=== PATIENT | male | born 1950 | race African-American/Black ===

== ENCOUNTER → 2018-07-17 | Outpatient (CLI) | payer OTHER ==
--- NOTE | 2018-07-17 14:59 | 2DMMODE ---
[facility] [place] [address] 2 D/M-MODE ECHOCARDIOGRAM Name: GREG KWOK JENNY Room #: REG [facility]#: [id number] ������������� Admission: 07/17/18 ������������� Attend Phys: Brady Goldman Discharge: ��� ������������� ��� Date of : 48 Date of Service: 07/17/18 1459 �� Report #: [id number] �������� ��������������������������������������������[id number] THIS REPORT FOR: //name// APPROVED REPORT Study performed: 07/17/2018 13:16:54 EXAM: Comprehensive 2D, Doppler, and color-flow Echocardiogram Patient Location: Out-Patient Status: routine BSA: 2.00 HR: 66 bpm BP: 115/65 mmHg Rhythm: NSR Other Information Study Quality: Good Indications Ventricular tachycardia. HX: CABG, DM, HTN, HLP 2D Dimensions RVDd: 35.81 mm IVSd: 13.59 (7-11mm) LVOT Diam: 19.98 (18-24mm) LVDd: 46.42 mm PWd: 12.46 (7-11mm) Ascending Ao: 25.48 (22-36mm) LVDs: 31.74 (25-40mm) Aortic Root: 33.28 mm Volumes Left Atrial Volume (Systole) Single Plane 4CH: 29.04 mL Single Plane 2CH: 38.83 mL LA ESV Index: 20.00 mL/m2 Aortic Valve AoV Peak Wiley.: 0.99 m/s AO Peak Gr.: 3.92 mmHg LVOT Max P.16 mmHg LVOT Max V: 0.73 m/s GALA Vmax: 2.32 cm2 Mitral Valve E/A Ratio: 1.0 MV Decel. Time: 231.52 ms MV E Max Wiley.: 0.69 m/s [facility] [address] [place] [address] 2 D/M-MODE [facility]OCARDIOGRAM [facility]: [facility] [id number] ������������� Admission: 07/17/18 ������������� Attend Phys: Brady Goldman Discharge: ��� ������������� ��� Date of : 48 Date of Service: 07/17/18 1459 �� Report #: [id number] �������� ��������������������������������������������[id number] MV A Wiley.: 0.69 m/s MV PHT: 67.14 ms IVRT: 83.04 ms Pulmonary Valve PV Peak Wiley.: 0.74 m/s PV Peak Gr.: 2.19 mmHg Pulmonary Vein P Vein S: 0.47 m/s P Vein A: 0.30 m/s P Vein D: 0.36 m/s P Vein A Dur.: 115.3 msec P Vein S/D Ratio: 1.31 Tricuspid Valve RAP Estimate: 5.00 mmHg Left Ventricle The left ventricle is normal size. There is normal LV segmental wall motion. Mild concentric left ventricular hypertrophy. Left ventricular systolic function is normal. LVEF is 55-60%. Moderate diastolic dysfunction is present (pseudonormal filling). Right Ventricle The right ventricle is normal size. The right ventricular systolic function is normal. Atria The left atrium size is normal. The right atrium size is normal. Aortic Valve Aortic valve is trileaflet; mildly calcified. No aortic regurgitation is present. There is no aortic valvular stenosis. Mitral Valve The mitral valve is normal in structure. Trace mitral regurgitation. No evidence of mitral valve stenosis. Tricuspid Valve The tricuspid valve is normal in structure. Trace tricuspid regurgitation. Unable to assess PA pressure. Pulmonic Valve Pulmonic valve is not well visualized. Great Vessels The aortic root is normal in size. The ascending aorta is normal in [facility] [address] [place] [address] 2 D/M-MODE [facility]IOGRAM [facility] #: REG Evelia#: [id number] ������������� Admission: 07/17/18 ������������� Attend Phys: Brady Espos[address] [facility] Discharge: ��� ������������� ��� Date of : 48 Date of Service: 07/17/18 1459 �� Report #: [id number] �������� ��������������������������������������������[id number] size. IVC is normal in size and collapses >50% with inspiration. Pericardium There is no pericardial effusion. <Conclusion> The left ventricle is normal size. Mild concentric left ventricular hypertrophy. Left ventricular systolic function is normal. Moderate diastolic dysfunction is present (pseudonormal filling). The right ventricle is normal size. The left atrium size is normal. Aortic valve is trileaflet; mildly calcified. Trace mitral regurgitation. Trace tricuspid regurgitation. ��������������������������������������������� <ELECTRONICALLY SIGNED> ���������������������������������������� By: Jc Barajas MD ��������������������������������������������� 07/17/181458 58 58 Jc Barajas MD /INF
== END ==
LOC: CV 13:04
DX: I11.9 Hypertensive heart disease without heart failure (principal); I35.8 Other nonrheumatic aortic valve disorders; E11.9 Type 2 diabetes mellitus without complications; E78.5 Hyperlipidemia, unspecified; Z95.1 Presence of aortocoronary bypass graft

== ENCOUNTER → 2018-12-14 | Outpatient (CLI) | payer OTHER | LOC: NUC 12-06 14:24 | DX: I25.10 Atherosclerotic heart disease of native coronary artery without angina pectoris (principal); I10 Essential (primary) hypertension; E78.5 Hyperlipidemia, unspecified; I48.91 Unspecified atrial fibrillation; J44.9 Chronic obstructive pulmonary disease, unspecified; E11.9 Type 2 diabetes mellitus without complications; Z95.5 Presence of coronary angioplasty implant and graft; Z79.4 Long term (current) use of insulin; Z79.899 Other long term (current) drug therapy ==

== ENCOUNTER → 2019-06-20 | Outpatient (CLI) | payer OTHER | LOC: SJCVCIMAG 10:59 → SJCVC 10:59 | DX: I08.2 Rheumatic disorders of both aortic and tricuspid valves (principal); R94.31 Abnormal electrocardiogram [ECG] [EKG]; I12.9 Hypertensive chronic kidney disease with stage 1 through stage 4 chronic kidney disease, or unspecified chronic kidney disease; E11.22 Type 2 diabetes mellitus with diabetic chronic kidney disease; N18.9 Chronic kidney disease, unspecified; I25.810 Atherosclerosis of coronary artery bypass graft(s) without angina pectoris; E11.40 Type 2 diabetes mellitus with diabetic neuropathy, unspecified; E78.00 Pure hypercholesterolemia, unspecified; J44.9 Chronic obstructive pulmonary disease, unspecified; E78.5 Hyperlipidemia, unspecified; M19.90 Unspecified osteoarthritis, unspecified site; Z82.49 Family history of ischemic heart disease and other diseases of the circulatory system; Z87.891 Personal history of nicotine dependence; Z87.448 Personal history of other diseases of urinary system; Z79.82 Long term (current) use of aspirin; Z79.4 Long term (current) use of insulin; Z79.899 Other long term (current) drug therapy ==

== ENCOUNTER → 2019-07-31 | Outpatient (CLI) | payer OTHER | LOC: SJCVC 13:33 | PROVIDERS: ATTEND Internal Medicine Cardiovascular Disease | DX: I25.10 Atherosclerotic heart disease of native coronary artery without angina pectoris (principal); I47.2 Ventricular tachycardia; J44.9 Chronic obstructive pulmonary disease, unspecified; R94.31 Abnormal electrocardiogram [ECG] [EKG]; I11.9 Hypertensive heart disease without heart failure; E78.5 Hyperlipidemia, unspecified; E11.9 Type 2 diabetes mellitus without complications; G47.33 Obstructive sleep apnea (adult) (pediatric); Z79.82 Long term (current) use of aspirin; Z79.4 Long term (current) use of insulin; Z79.899 Other long term (current) drug therapy; Z95.1 Presence of aortocoronary bypass graft; Z82.49 Family history of ischemic heart disease and other diseases of the circulatory system; Z87.891 Personal history of nicotine dependence ==

== ENCOUNTER → 2019-08-19 | Outpatient (CLI) | payer OTHER ==
[~2019-08-19] MED LIST: ASA81BEC PO; AVODART0.5 MG PO; BACLOFEN20 MG PO; BREO ELLIPTA 21 EACH INH; CLOPIDOGREL75 MG PO; COZAAR100 MG PO; CRESTOR20 MG PO; FUROSEMIDE 40 M40 MG PO; HYDRALAZINE 2525 MG PO; INCRUSE ELLI62.5 MCG INH; MAXITROL EYE DRO5 ML RT. EYE; METHADONE HCL5 MG PO; NEURONTIN 400400 M1 PO; NOVOLOG100 UNIT/M SUBQ; PLAVIX 75 MG TA75 MG PO; SPIRONOLACTONE25 MG PO; TOPROL XL25 MG PO; TRADJENTA5 MG; TRESIBA100 UNIT/1 SUBQ
== END ==
LOC: SJCVC 13:08
PROVIDERS: ATTEND Internal Medicine Cardiovascular Disease
DX: R94.31 Abnormal electrocardiogram [ECG] [EKG] (principal); I11.0 Hypertensive heart disease with heart failure; I50.32 Chronic diastolic (congestive) heart failure; E78.00 Pure hypercholesterolemia, unspecified; I25.810 Atherosclerosis of coronary artery bypass graft(s) without angina pectoris; J44.9 Chronic obstructive pulmonary disease, unspecified; E11.40 Type 2 diabetes mellitus with diabetic neuropathy, unspecified; E78.5 Hyperlipidemia, unspecified; M19.90 Unspecified osteoarthritis, unspecified site; Z82.49 Family history of ischemic heart disease and other diseases of the circulatory system; Z95.1 Presence of aortocoronary bypass graft; Z79.82 Long term (current) use of aspirin; Z79.899 Other long term (current) drug therapy; Z87.891 Personal history of nicotine dependence

== ENCOUNTER 2019-08-22 06:37 | Observation (INO) | payer OTHER | END 2019-08-23 11:01 | disposition home or self-care (01) | LOC: CATH 06:37 → 2N 12:27 | PROVIDERS: ADMIT Internal Medicine Cardiovascular Disease | DX: I25.110 Atherosclerotic heart disease of native coronary artery with unstable angina pectoris (principal); E78.00 Pure hypercholesterolemia, unspecified; I11.0 Hypertensive heart disease with heart failure; I50.9 Heart failure, unspecified ==

== ENCOUNTER → 2019-08-28 | Outpatient (CLI) | payer OTHER | LOC: SJCVCIMAG 13:11 | PROVIDERS: ATTEND Internal Medicine Cardiovascular Disease | DX: R19.09 Other intra-abdominal and pelvic swelling, mass and lump (principal); R10.30 Lower abdominal pain, unspecified; I25.10 Atherosclerotic heart disease of native coronary artery without angina pectoris; E11.22 Type 2 diabetes mellitus with diabetic chronic kidney disease; I13.0 Hypertensive heart and chronic kidney disease with heart failure and stage 1 through stage 4 chronic kidney disease, or unspecified chronic kidney disease; I50.32 Chronic diastolic (congestive) heart failure; N18.9 Chronic kidney disease, unspecified; Z87.891 Personal history of nicotine dependence; Z79.899 Other long term (current) drug therapy ==

== ENCOUNTER → 2019-08-29 | Outpatient (CLI) | payer OTHER | LOC: SJCVC 09:57 | PROVIDERS: ATTEND Internal Medicine | DX: R94.31 Abnormal electrocardiogram [ECG] [EKG] (principal); I25.10 Atherosclerotic heart disease of native coronary artery without angina pectoris; I10 Essential (primary) hypertension; E78.00 Pure hypercholesterolemia, unspecified; Z79.899 Other long term (current) drug therapy; Z87.891 Personal history of nicotine dependence ==

== ENCOUNTER → 2019-09-18 | Outpatient (CLI) | payer OTHER | LOC: RAD 09:17 | PROVIDERS: ATTEND Internal Medicine | DX: R06.00 Dyspnea, unspecified (principal) ==

== ENCOUNTER → 2019-10-11 | Outpatient (CLI) | payer OTHER | LOC: SJCVCIMAG 09:23 | PROVIDERS: ATTEND Internal Medicine Cardiovascular Disease | DX: I25.10 Atherosclerotic heart disease of native coronary artery without angina pectoris (principal); R94.31 Abnormal electrocardiogram [ECG] [EKG]; I11.0 Hypertensive heart disease with heart failure; I50.32 Chronic diastolic (congestive) heart failure; E11.9 Type 2 diabetes mellitus without complications; J44.9 Chronic obstructive pulmonary disease, unspecified; E78.00 Pure hypercholesterolemia, unspecified; Z95.1 Presence of aortocoronary bypass graft; Z87.891 Personal history of nicotine dependence; Z79.899 Other long term (current) drug therapy ==

== ENCOUNTER → 2020-01-16 | Outpatient (CLI) | payer OTHER | LOC: LAB 10:35 | PROVIDERS: ATTEND Internal Medicine | DX: Z01.812 Encounter for preprocedural laboratory examination (principal); Z20.828 Contact with and (suspected) exposure to other viral communicable diseases ==

== ENCOUNTER → 2020-01-20 | Outpatient (CLI) | payer OTHER ==
--- NOTE | 2020-01-22 15:19 | SLE ---
[facility] [place] [address] POLYSOMNOGRAPHY STUDY Name: GREG KWOK Room #: REG HAZEL Martinez.#: [id number] Admission: 01/20/20 Attend Phys: Rocky Scherer MD Discharge: Date of : 48 Report #: [id number] THIS REPORT FOR: cc: Kaylah Pink MD, Julie MD Khan, Aman U. MD ~ DATE OF SERVICE: 01/20/2020 SLEEP STUDY ATTENDING PHYSICIAN: Rocky Scherer MD The patient is 69 years old who weighs 190 pounds with a BMI of 25.8. The patient's Talmo score was 11. The patient has a diagnosis of sleep apnea, which was initially based on a home sleep study. The patient is placed on an auto CPAP. However, on followup the download data still showed an AHI of 17.5 per hour. The patient was placed on BiPAP. The patient had another sleep study, which was a BiPAP titration study performed at [facility] on 07/03/2019. The patient was titrated up to BiPAP pressure of 11/5. The patient's AHI; however, was 58.7 per hour and was predominantly related to central apneas. No backup rate was mentioned. The patient was referred back to [facility] for a BiPAP titration study with possible backup rate. During the night study, the patient spent 422 minutes in bed and slept for 379 minutes with a sleep efficiency of 90%. Sleep latency was 4.3 minutes with a REM latency of 54 minutes. Sleep architecture showed normal stage 1 sleep, increased stage 2 sleep, absent N3 sleep and normal REM sleep, which was 19% of the total sleep time. EKG monitoring revealed an average heart rate of 70 beats per minute. There were PVCs seen frequently. No sustained arrhythmias observed. No PLM seen. The patient was started on BiPAP at a pressure of 8/4 and titrated up to 11/5. A backup rate was also added. This does happen after 2:00 a.m. At the BiPAP pressure of 11/5 with a backup rate of 14, the patient slept 88% of the time with a total of 189 minutes. The patient's AHI was reduced to 6.8 per hour and oxygen saturations remained above 90%. Without a backup rate, the patient's AHI was also 6.8 per hour. As reported previously, the central apneas that were seen on BiPAP titration study were likely treatment emergent central apneas. However, the patient would benefit with a backup rate at the present moment. IMPRESSION: [facility] [address] [place] [address] POLYSOMNOGRAPHY STUDY [facility] Room #: REG HAZEL Alt[place]ano#: [id number] Admission: 01/20/20 Attend Phys: Rocky Scherer MD Discharge: Date of : 48 Report #: [id number] 1. Sleep apnea diagnosed by previous sleep study. 2. No clinically significant periodic limb movements of sleep. 3. Abnormal EKG consistent with premature ventricular contractions. RECOMMENDATIONS: 1. BiPAP at a pressure of 11/5 with a backup rate of 14 should be used on a nightly basis. It seems like that the patient was likely having treatment emergent central apneas. This AHI at the same BiPAP pressure is much better than previous AHI of 58 per hour on a previous sleep study done in 06/2019. Treatment emergent central apneas tend to improve over a period of time as seen on this study. 2. Follow up in 4-6 weeks to assess compliance with BiPAP and to document clinical improvement. I would also highly recommend to review the download data. 3. 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 4. Cautioned regarding driving until symptoms of sleep apnea resolve with the above recommendations. <ELECTRONICALLY SIGNED> By: Marquise Soriano MD 01/22/20 1519 31 44 Marquise Soriano MD /nt
== END ==
LOC: SLEEPLAB 16:06
PROVIDERS: ATTEND Internal Medicine
DX: G47.33 Obstructive sleep apnea (adult) (pediatric) (principal); G47.31 Primary central sleep apnea; Z68.25 Body mass index [BMI] 25.0-25.9, adult

== ENCOUNTER → 2020-04-10 | Outpatient (CLI) | payer OTHER | LOC: SJCVC 11:33 | PROVIDERS: ATTEND Internal Medicine Cardiovascular Disease | DX: R94.31 Abnormal electrocardiogram [ECG] [EKG] (principal); I25.10 Atherosclerotic heart disease of native coronary artery without angina pectoris; I11.0 Hypertensive heart disease with heart failure; I50.32 Chronic diastolic (congestive) heart failure; E78.00 Pure hypercholesterolemia, unspecified; R60.9 Edema, unspecified; E78.5 Hyperlipidemia, unspecified; E11.40 Type 2 diabetes mellitus with diabetic neuropathy, unspecified; G47.33 Obstructive sleep apnea (adult) (pediatric); M19.90 Unspecified osteoarthritis, unspecified site; Z79.82 Long term (current) use of aspirin; Z79.899 Other long term (current) drug therapy; Z87.891 Personal history of nicotine dependence ==

== ENCOUNTER → 2020-10-15 | Outpatient (CLI) | payer OTHER | LOC: SJCVCIMAG 08:38 | PROVIDERS: ATTEND Internal Medicine Cardiovascular Disease | DX: I25.10 Atherosclerotic heart disease of native coronary artery without angina pectoris (principal); I13.0 Hypertensive heart and chronic kidney disease with heart failure and stage 1 through stage 4 chronic kidney disease, or unspecified chronic kidney disease; I50.32 Chronic diastolic (congestive) heart failure; E78.00 Pure hypercholesterolemia, unspecified; R60.9 Edema, unspecified; E11.9 Type 2 diabetes mellitus without complications; J43.9 Emphysema, unspecified; Z79.82 Long term (current) use of aspirin; Z79.899 Other long term (current) drug therapy; Z79.4 Long term (current) use of insulin; Z87.891 Personal history of nicotine dependence; E78.5 Hyperlipidemia, unspecified; Z95.1 Presence of aortocoronary bypass graft ==

== ENCOUNTER 2020-11-16 07:34 | Observation (INO) | payer OTHER ==
[~2020-11-16] VITALS: Ht 182.9 cm; Wt 85.3 kg
[2020-11-16 08:40] LABS: HEMATOCRIT 41.9 % (42.0-52.0); HEMOGLOBIN 14.2 gm/dL (14.0-18.0); MCH 29.7 pg (26.0-34.0); MCHC 33.9 g/dL (28.0-37.0); MCV 87.8 fL (80.0-100.0); RBC 4.78 mil/uL (4.50-6.00); RDW 14.1 % (10.5-14.5); WBC 5.9 thou/uL (4.0-11.0)
[2020-11-16 08:55] LABS: CALCIUM 8.8 mg/dL (8.5-10.1); CREATININE 1.6 mg/dL (0.7-1.3); POTASSIUM 4.1 mmol/L (3.5-5.1)
[2020-11-16] MEDS ORDERED: FUROSEMIDE 40 M40 MG PO (09:49)
[2020-11-16] MEDS ORDERED: SPIRONOLACTONE25 M1 PO (09:50)
[2020-11-16 10:05] VITALS: BP 154/68
--- NOTE | 2020-11-16 12:08 | EKG ---
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 : 1950 Requested By: Jc Barajas Order Number: [id number] MD: Caden Bailey Measurements Intervals Webb Rate: 64 P: 67 TN: 177 QRS: -7 QRSD: 98 T: -61 QT: 430 QTc: 444 Interpretive Statements Sinus rhythm Atrial premature complex Left atrial enlargement RSR' in V1 or V2, right VCD or RVH Borderline T abnormalities, inferior leads Compared to ECG 08/23/2019 07:41:22 Atrial premature complex(es) now present Right ventricular hypertrophy now present T-wave abnormality now present ST (T wave) deviation no longer present Electronically Signed On 11-16-2020 12:07:33 CDT by Caden Bailey [email or web address] <ELECTRONICALLY SIGNED> By: Caden Bailey MD, FACC 11/16/20 1207 1037 1037 Caden Bailey MD, FACC /EPI
[2020-11-16 16:15] VITALS: BP 160/76
[2020-11-16 16:30] VITALS: BP 151/74
[2020-11-16 16:45] VITALS: BP 143/79
[2020-11-16 17:00] VITALS: BP 151/69
--- NOTE | 2020-11-16 17:01 | CATHLAB ---
[facility] [place] [address] INVASIVE PROCEDURE REPORT Name: GREG KWOK Room #: 205-P [facility] [place] MCal#: [id number] Admission: 11/16/20 Attend Phys: Jc Barajas MD Discharge: Date of : 48 Report #: [id number] THIS REPORT FOR: cc: Mckenzie Aragon MD, Hannah MD Park, Jin S. 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, Minerva Crystal RN RN, Randee Jean Baptiste RT(R)() Mai Prakash Ja'net RTR Monitor Procedures Performed Left Heart Cath w/or w/o Coronaries [id number] [facility] Art Access - R femoral artery* 03127 Initial Mod Sed Same Phys/QHP Gr5y 947406 44301 Mod Sed Same Phys/QHP Ea 316171 Indication Dyspnea, Unstable angina , Positive stress test, Chest pain Risk Factors Peripheral Vascular Disease, Hypercholesterolemia, Coronary Artery DiseaseHypertension, Diabetes Previous Procedures/Diagnoses Previous CABGPrevious PCI Procedure Narrative The Right Groin^ was infiltrated with 1% Lidocaine subcutaneous anesthesia. A MoSoNACLE 4FR Sheath #[id number] sheath was inserted into the RFA^. Coronary angiography was performed using coronary diagnostic catheters. The right coronary system was accessed and visualized with a 4FR AR MOD #[id number] catheter. The left coronary system was accessed and visualized with a 4FR JL4 catheter. The left ventricle was accessed and visualized with a 4FR JR4 catheter. Left ventricular/Aortic Valve gradient assessed via catheter pullback. Left ventriculogram was performed in 30 degree projection. Hemostasis was obtained with manual pressure following sheath removal without [facility] [place] [address] INVASIVE PROCEDURE REPORT [facility]: [facility] Room #: [address] [place] [address] [place] .R.#: [id number] Admission: 11/16/20 Attend Phys: Jc Barajas MD Discharge: Date of : 48 Report #: [id number] any complications. The patient tolerated the procedure well and there were no complications associated with the procedure. There was no hematoma. Intraoperative Conscious Sedation Sedation start time: 14:32 Case end Time: 15:10 Fentanyl 50 mcg Versed 1 mg Fluoro Time: 10.30 minutes Dose: DAP 8152.80 cGycm2 1070 mGy Contrast Type and Amount: Visipaque 75 ml Coronary Angiography The patient's coronary anatomy is right dominant. Diagnostic Cath Left Main There is a stent in the distal left main artery extending into the proximal circumflex with severe restenosis, 80%. LAD The LAD has a severe ostial occlusion. There is a patent SIEGEL graft with an end-to-side anastomosis to the mid LAD. This has retrograde filling into a moderate-sized first diagonal artery. There is LENNIE-3 antegrade blood flow into the distal LAD segment. Circumflex As above, there is a severe restenotic lesion in the proximal circumflex stent. OM1 There is a severe stenosis in the proximal segment, 80%. Right Coronary The RCA is totally occluded in the midsegment. There is an occluded vein graft to the PDA. The distal RCA branches are filled via collateral circulation from the left coronary artery. Left Ventriculography Left Ventriculography was not performed. Ejection Fraction was 35% based off patient's Nuclear Cardiac Stress Test. An LVEDP was measured and there is no gradient across the outflow tract. Hemodynamics The aortic pressure is 141/67 mmHg with a mean of 93 mmHg. The left ventricular pressure is 144/5 mmHg with a mean of mmHg. The left ventricular end diastolic pressure is 16 mmHg. Pullback from the left ventricle to the aorta revealed no gradient across the aortic valve. Conclusion [facility] [address] [place] [address] INVASIVE PROCEDURE REPORT [facility] Room #: 205-P [facility] IN M.R.#: [id number] Admission: 11/16/20 Attend Phys: Jc Barajas MD Discharge: Date of : 48 Report #: [id number] 1. There is a patent SIEGEL graft to the mid LAD segment, with retrograde filling of a moderate-sized first diagonal artery. 2. The RCA is occluded, the distal branches fill via collateral circulation. 3. There is a severe restenotic lesion in the distal left main extending into the proximal left circumflex artery. Recommend staged PCI involving laser atherectomy. 4. Recommend guideline directed medical therapy. <ELECTRONICALLY SIGNED> By: Jc Barajas MD 11/16/201699 99 99 Jc Barajas MD /INF
[2020-11-16 17:30] VITALS: BP 159/88
== END 2020-11-16 17:50 | disposition home or self-care (01) ==
LOC: CATH 07:34 → 2N 15:54
PROVIDERS: ADMIT Internal Medicine Cardiovascular Disease; ATTEND Internal Medicine Cardiovascular Disease
DX: I25.110 Atherosclerotic heart disease of native coronary artery with unstable angina pectoris (principal); I13.0 Hypertensive heart and chronic kidney disease with heart failure and stage 1 through stage 4 chronic kidney disease, or unspecified chronic kidney disease; E11.22 Type 2 diabetes mellitus with diabetic chronic kidney disease; I50.30 Unspecified diastolic (congestive) heart failure; N18.9 Chronic kidney disease, unspecified; Z79.82 Long term (current) use of aspirin; Z79.84 Long term (current) use of oral hypoglycemic drugs; Z79.899 Other long term (current) drug therapy; Z86.73 Personal history of transient ischemic attack (TIA), and cerebral infarction without residual deficits

== ENCOUNTER 2020-11-24 07:48 | Observation (INO) | payer OTHER ==
[~2020-11-24] VITALS: Ht 182.9 cm; Wt 82.1 kg
[2020-11-24] VITALS (8 sets, daily range): BP systolic 111–180; BP diastolic 79–92
[~2020-11-24 07:48] MED LIST changes: +SPIRONOLACTONE25 M1 PO
[2020-11-24 08:26] LABS: HEMATOCRIT 42.8 % (42.0-52.0); HEMOGLOBIN 14.2 gm/dL (14.0-18.0); MCH 29.2 pg (26.0-34.0); MCHC 33.2 g/dL (28.0-37.0); RBC 4.87 mil/uL (4.50-6.00); RDW 14.1 % (10.5-14.5); WBC 6.2 thou/uL (4.0-11.0)
[2020-11-24 08:34] LABS: CREATININE 1.9 mg/dL (0.7-1.3); POTASSIUM 4.2 mmol/L (3.5-5.1)
--- NOTE | 2020-11-24 16:42 | CATHLAB ---
[facility] [place] [address] INVASIVE PROCEDURE REPORT Name: GREG KWOK Room #: REG HAZEL MartinezCompa#: [id number] Admission: 11/24/20 Attend Phys: Jc Barajas MD Discharge: Date of : 48 Report #: [id number] THIS REPORT FOR: cc: Mckenzie Aragon MD, Hannah MD Park, Jin S. MD ~ APPROVED REPORT Study performed: 11/24/2020 14:16:11 Patient Details Patient Status: Out-Patient Room #: The patient is a 70 year-old male Event Personnel Jc Barajas Records Analyst, Светлана Quinteros RTR Monitor, Hamilton Szymanski RN RN, Manjula Oenill RTR Scrub Procedures Performed Art Access - L femoral artery* LINNEA w/Atherectomy Single Left Main C9602 DESATH Hemostasis w/ Mynx , 06537 Initial Mod Sed Same Phys/QHP Gr5y 817290 17354 Mod Sed Same Phys/QHP Ea 469596 Indication Dyspnea, Unstable angina , Positive stress test, Chest pain, The patient had a recent cardiac catheterization performed revealing severe restenotic lesion in in the distal left main extending into the ostial left circumflex artery. He presents for staged PCI involving laser atherectomy and stent placement. Risk Factors Peripheral Vascular Disease, Hypercholesterolemia, Coronary Artery DiseaseHypertension, Diabetes Previous Procedures/Diagnoses Previous CABGPrevious PCI, Previous Femoral Procedure Procedure Narrative The Left Groin^ was infiltrated with 1% Lidocaine subcutaneous anesthesia. A PINNACLE 6FR Sheath #[id number] sheath was inserted into the LFA^. Coronary angiography was performed using coronary diagnostic catheters. Pre-demployment femoral angiogram was performed . Closure device was deployed with a Fr MYNXGRIP 6/7F #[id number]. The [facility] [address] [address] INVASIVE PROCEDURE REPORT [facility] Room #: REG [facility]#: [id number] Admission: 11/24/20 Attend Phys: Jc Barajas MD Discharge: Date of : 48 Report #: [id number] patient tolerated the procedure well and there were no complications associated with the procedure. There was no hematoma. Intraoperative Conscious Sedation Sedation start time: 15:22 Case end Time: 16:14 Fentanyl 50 mcg Versed 1 mg Fluoro Time: 7.80 minutes Dose: DAP 67767.20 cGycm2 1577 mGy Contrast Type and Amount: Visipaque 95 ml Coronary Angiography The patient's coronary anatomy is right dominant. Diagnostic Cath Left Main There is a severe restenotic lesion in the distal left main extending into the ostial left circumflex artery, 90%. Hemodynamics The aortic pressure is 171/88 mmHg with a mean of 112 mmHg. PCI Technique Lesion Percutaneous coronary intervention was performed on the Distal left main extending into the ostial left circumflex artery. The lesion stenosis prior to intervention was 90% with LNENIE 3 flow. A VISTA 6FR XB 3.5 #159017 Guide Catheter was used to engage the ostium. A Luge Wire .014 x 182CM #[id number] Interventional Guidewire was used to cross the lesion. BALLOON DILATION A Balloon catheter Euphora NC RX 3.25 x 15 #[id number] was inserted and inflated up to 20.00atm for 21seconds. STENT DEPLOYMENT A drug-eluting stent RESOLUTE YVES RX 3.5 X 12 #[id number] was inserted and inflated up to 16.00atm for 12seconds. POST STENT DEPLOYMENT BALLOON DILATION A Balloon catheter Euphora NC RX 3.5 x 12 #[id number] was inserted and inflated up to 18.00atm for 16seconds. Final angiography reveals 0 % stenosis with LENNIE 3 flow. COMMENTS [facility] [address] [place] [address] INVASIVE PROCEDURE REPORT Name: GREG KWOK Room #: REG CL [facility]#: [id number] Admission: 11/24/20 Attend Phys: Jc Barajas MD Discharge: Date of : 48 Report #: [id number] A 0.9 Nifti coronary laser was used prior to ballooning and stenting. 80/80 for 7 passes totaling 70 seconds. Conclusion 1. PCI involving laser atherectomy and stent placement to the severe restenotic lesion in the distal left main artery extending into the ostial left circumflex artery. 2. Recommend dual antiplatelet therapy and aggressive risk factor management. <ELECTRONICALLY SIGNED> By: Jc Barajas MD 11/24/201641 41 41 Jc Barajas MD /INF
--- NOTE | 2020-11-24 18:14 | NUR ---
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 Admission assessment done & in chart. Tele placed on pt. SA on the monitor. BP continues to raise w/ post-cath assessments. Paged Dr. Barajas, received & carried out orders. Will continue to monitor pt.
[2020-11-25 00:10] VITALS: BP 138/94
--- NOTE | 2020-11-25 04:02 | NUR ---
PROGRESS PT A/O X4, UP AD DAYNE TO BATHROOM VOIDING QS. C/O BACKPAIN AND OXYCODONE GIVEN X 1 WITH EFFECT, PT SLEPT AFTER. LUNGS CTA. SL TO RH FLUSHES WITHOUT DIFFICULTY. GROIN SITE TO RIGHT HEALED AND INTACT KENNETH. LEFT GROIN SITE WITH TRANSPARENT DRSG AND GUAZE C/D/I NO HEMATOMA NOTED. TELEMETRY INTACT READING SA WITH RATES IN THE 60'S TO 80'S. ONE EPISODE OF VTACH NOTED 10 TO 11 BEATS. VSS CONTINUE POC.
[2020-11-25 04:19] VITALS: BP 123/81
[2020-11-25 05:23] LABS: ALBUMIN 2.9 g/dL (3.4-5.0); CREATININE 1.7 mg/dL (0.7-1.3); TOTAL BILIRUBIN 0.6 mg/dL (0.2-1.0); TOTAL PROTEIN 7.2 g/dL (6.4-8.2)
[2020-11-25 05:26] LABS: HEMOGLOBIN 15.5 gm/dL (14.0-18.0)
[2020-11-25 05:29] LABS: HEMATOCRIT 45.1 % (42.0-52.0); MCH 29.9 pg (26.0-34.0); MCHC 34.3 g/dL (28.0-37.0); MCV 87.2 fL (80.0-100.0); RBC 5.17 mil/uL (4.50-6.00); RDW 13.6 % (10.5-14.5); WBC 5.9 thou/uL (4.0-11.0)
--- NOTE | 2020-11-25 07:19 | EKG ---
[address] [address] ELECTROCARDIOGRAM REPORT Name: GREG KWOK Room #: 206-[facility] M.R.#: [id number] Admission: 11/24/20 Attend Phys: Jc Barajas MD Discharge: Date of : 48 Report #: [id number] 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: FSCHWALBE : 1950 Requested By: Jc Barajas Order Number: [id number] MD: Caden Bailey Measurements Intervals [place] Rate: 62 P: 70 NE: 186 QRS: 4 QRSD: 83 T: 253 QT: 379 QTc: 385 Interpretive Statements Sinus rhythm Probable left atrial enlargement Abnormal R-wave progression, early transition Borderline repolarization abnormality Compared to ECG 11/16/2020 10:37:03 Atrial premature complex(es) no longer present Right ventricular hypertrophy no longer present T-wave abnormality no longer present Electronically Signed On 11-25-2020 7:19:20 CDT by Caden Bailey [email or web address] <ELECTRONICALLY SIGNED> By: Caden Bailey MD, FACC 11/25/20 0719 1730 1730 Caden Bailey MD, FAC /EPI
[2020-11-25 07:49] VITALS: BP 178/97
[2020-11-25 11:03] VITALS: BP 128/81
[2020-11-25 11:10] VITALS: BP 128/81
--- NOTE | 2020-11-25 11:23 | NUR ---
PT WAS EXPLAINED DISCHARGE INSTRUCTIONS AND MEDICATIONS. FOLLOW UP APPOINTMENTS WERE HIGHLIGHTED AND EXPLAINED TO PT. PT STATED HE UNDERSTOOD. ALL QUESTIONS ANSWERED, PT STATED NO ADDITIONAL QUESTIONS.
== END 2020-11-25 12:19 | disposition home or self-care (01) ==
LOC: CATH 07:48 → 2N 16:47
PROVIDERS: ADMIT Internal Medicine Cardiovascular Disease; ATTEND Internal Medicine Cardiovascular Disease
DX: I25.110 Atherosclerotic heart disease of native coronary artery with unstable angina pectoris (principal); E78.00 Pure hypercholesterolemia, unspecified; E11.51 Type 2 diabetes mellitus with diabetic peripheral angiopathy without gangrene; F43.9 Reaction to severe stress, unspecified; E78.5 Hyperlipidemia, unspecified; J44.9 Chronic obstructive pulmonary disease, unspecified; I13.0 Hypertensive heart and chronic kidney disease with heart failure and stage 1 through stage 4 chronic kidney disease, or unspecified chronic kidney disease; I50.30 Unspecified diastolic (congestive) heart failure; N18.9 Chronic kidney disease, unspecified; E11.22 Type 2 diabetes mellitus with diabetic chronic kidney disease; I47.1 Supraventricular tachycardia; Z86.73 Personal history of transient ischemic attack (TIA), and cerebral infarction without residual deficits; Z95.1 Presence of aortocoronary bypass graft; Z98.890 Other specified postprocedural states

== ENCOUNTER → 2020-12-08 | Outpatient (CLI) | payer OTHER | LOC: SJCVCIMAG 10:52 | PROVIDERS: ATTEND Internal Medicine Cardiovascular Disease | DX: R94.31 Abnormal electrocardiogram [ECG] [EKG] (principal); I11.0 Hypertensive heart disease with heart failure; I50.32 Chronic diastolic (congestive) heart failure; I25.10 Atherosclerotic heart disease of native coronary artery without angina pectoris; E78.00 Pure hypercholesterolemia, unspecified; R60.0 Localized edema; R60.9 Edema, unspecified; E11.40 Type 2 diabetes mellitus with diabetic neuropathy, unspecified; G47.33 Obstructive sleep apnea (adult) (pediatric); Z79.4 Long term (current) use of insulin; Z82.49 Family history of ischemic heart disease and other diseases of the circulatory system; Z87.891 Personal history of nicotine dependence; Z79.82 Long term (current) use of aspirin; Z79.899 Other long term (current) drug therapy ==